=== PATIENT | male | born 1965 | race Caucasian/White ===

== ENCOUNTER → 2017-11-30 | Outpatient (CLI) | payer BC | END | disposition home or self-care (01) | LOC: C.RDSM 12:42 | PROVIDERS: ATTEND Orthopaedic Surgery | DX: M25.561 Pain in right knee (principal) ==

== ENCOUNTER → 2017-12-11 | Outpatient (CLI) | payer BC ==
[2017-12-11 11:44] LABS: HEMATOCRIT 48.1 % (42-52); HEMOGLOBIN 16.3 g/dL (14.0-18.0); MEAN CELL VOLUME 86.7 fL (80-100); MEAN CORPUSCULAR HEMOGLOBIN 29.4 pg (25-34); MEAN CORPUSCULAR HGB CONC 33.9 g/dl (32-36); MEAN PLATELET VOLUME 10.8 fL (7.4-10.4); PLATELET COUNT 239 K/uL (130-400); RED CELL DISTRIBUTION WIDTH CV 13.8 % (11.5-14.5); RED CELL DISTRIBUTION WIDTH SD 43.5 fL (36.4-46.3); WHITE BLOOD COUNT 6.97 K/uL (4.8-10.8)
[2017-12-11 12:08] LABS: BLOOD UREA NITROGEN 13 mg/dl (7-18); CREATININE 1.15 mg/dl (0.60-1.40); GLUCOSE 94 mg/dl (70-99)
[2017-12-11 12:09] LABS: CALCIUM 9.1 mg/dl (8.5-10.1); CARBON DIOXIDE 29 mmol/L (21-32); SODIUM 139 mmol/L (136-145)
== END | disposition home or self-care (01) ==
LOC: C.LAB 09:27
PROVIDERS: ATTEND Physician Assistant
DX: Z01.818 Encounter for other preprocedural examination (principal); S83.231D Complex tear of medial meniscus, current injury, right knee, subsequent encounter; X58.XXXD Exposure to other specified factors, subsequent encounter

== ENCOUNTER → 2017-12-17 | Day surgery (SDC) | payer BC ==
[2017-12-05 08:32] VITALS: Ht 175.3 cm; Wt 83.2 kg
[~2017-12-17] VITALS: Ht 175.3 cm; Wt 83.2 kg
[~2017-12-17] MED LIST: ATROPINE SULFATE 0.1 MG/ML 5ML SYR IV PRN; CEFAZOLIN 2000MG IV PUSH 15 ML IV SCH; DEXAMETHASONE SOD INJ 4 MG/ML VIAL ONE; EpHEDrine SULFATE INJ 50 MG/ML AMP IV PRN; EpINEphrine INJ 1MG/ML AMP 1 MG/ML AMP ONE; FENTANYL CITRATE INJ 50 MCG/1 ML 2 ML VIAL IV PRN; FENTANYL CITRATE INJ 50 MCG/1 ML 2 ML VIAL ONE; FLUMAZENIL 0.1 MG/1 ML 10 ML VIAL IV PRN; LABETALOL HCL IV 5 MG/ML 20ML IV PRN; LACTATED RINGER'S 1000ML 1,000 ML IV SCH; LIDO 2%/EPINEPHRINE 1:100000 20 ML VIAL ONE; LIDOCAINE HCL 2% 2 ML VIAL (20MG/ML) ONE; MEPERIDINE HCL 25 MG/ML CARP IV PRN; METOCLOPRAMIDE HCL INJ 5 MG/ML 2 ML VIAL IV PRN; MIDAZOLAM HCL 1 MG/ML 2ML VIAL ONE; NALOXONE HCL 0.4 MG/1 ML VIAL/CARP IV PRN; ONDANSETRON INJ 2 MG/ML 2 ML VIAL IV PRN; ONDANSETRON INJ 2 MG/ML 2 ML VIAL ONE; PHENYLEPHRINE 100MCG/ML 5ML SYR IV PRN; PROPOFOL IV EMULSION 10 MG/ML 20 ML VIAL ONE; ROPIVACAINE 0.5% 5 MG/ML 30 ML VIAL ONE; SODIUM CHLORIDE 0.9% 1000ML 1,000 ML IV SCH; TRAMADOL HCL 50 MG TAB ONE; TRAMADOL HCL 50 MG TAB PO PRN
--- NOTE | 2017-12-17 06:50 | History & Physical Bridge - [place] ---
H&P Re-Evaluation Bridge Note: I have examined the patient, reviewed the History & Physical and in the interval since the performance of the History & Physical I have noted the following changes of clinical significance: No changes noted
--- NOTE | 2017-12-17 07:45 | [facility] Post Operative Brief Note ---
Immediate Operative Summary Operative Date Dec 17, 2017. Pre-Operative Diagnosis Right Knee Medial Meniscus Tear Post-Operative Diagnosis Same Procedure(s) Performed Right Knee Arthroscopy, Partial Medial Meniscectomy, Cyst Excision, Chondroplasty of Lateral Femoral Condyle Surgeon Dr. Perez Assembler [employer] Tester Electronics Surgeon(s) Juany Flores PA-C Estimated Blood Loss Minimal Findings Consistent with Post-Op Diagnosis Fluids (cc crystalloids) 600 cc Specimens A. Right Mensical Cyst Drains None Anesthesia Type General Complication(s) none Disposition Accompanied Pt To Recover: no Disposition: Recovery Room / PACU
--- NOTE | 2017-12-17 07:58 | [facility] Operative Report ---
Operative Report Operative Date Dec 17, 2017. Pre-Operative Diagnosis Right Knee Medial Meniscus Tear Post-Operative Diagnosis Same Procedure(s) Performed Right Knee Arthroscopy, Partial Medial Meniscectomy, Cyst Excision, Chondroplasty of Lateral Femoral Condyle Surgeon Dr. Perez Template Layout Worker Surgeon(s) Juany Flores PA-C Estimated Blood Loss Minimal Fluids 600 cc Specimens A. Right Mensical Cyst Drains None Anesthesia Type General Complication(s) none Disposition no Recovery Room / PACU Description of Procedure I was present during the entire case and assisted with wound closure and dressing placement. Please see Dr. Perez note for specifics of procedure. I attest to the content of the Intraoperative Record and any orders documented therein. Any exceptions are noted below.
--- NOTE | 2017-12-17 08:02 | Discharge Instructions ---
Discharge Instructions Date of Service Dec 17, 2017. Admission Reason for Admission: Right Knee Medial Meniscus Tear Discharge Discharge Diagnosis / Problem: Right knee medial meniscus tear; Parameniscal Cyst; LFC chondromalacia Discharge Goals Goal(s): Decrease discomfort, Improve function, Increase independence Activity Recommendations Activity Limitations: as noted below Lifting Limitations: none Exercise/Sports Limitations: until after follow-up appointment May Resume Sexual Activity: when tolerated Shower/Bathe: tomorrow, keep incision dry Driving or Machine Use: No driving until cleared by academic support specialist. Weightbearing Status: Right weightbearing (as tolerated with aide of crutches for next few days) . Instructions / Follow-Up Instructions / Follow-Up Post-operative Instructions Dear Patient and Family/Friends, Before you are discharged from the hospital, it is important to know what to expect when you get home after surgery. To that end, we have created this sheet of discharge instructions which covers many commonly asked questions. Make sure you go through this sheet in its entirety with your nurse before you are discharged. Please note that we will go over the specifics of your surgery and recovery when you return for your first post-operative visit. Sincerely, Dr. Perez Pain Expect to be in a fair amount of pain after surgery. Remember, our goal is not to eliminate your pain, but to make it tolerable. It is a good idea to stay ahead of your pain by taking the medications you were prescribed once you get home. Typically, the pain starts improving 3-7 days after surgery. You should start weaning off the narcotic pain medication (oxycodone, hydrocodone, hydromorphone, morphine) as soon as your pain improves. Please call our office if your pain is not adequately controlled. Ice Ice your operative site at least 5 times a day for 15-30 minutes at a time. Make sure you have a thin cloth between the ice or cooling unit and your skin to prevent alonso bite. This is especially important if you received a nerve block. Continue icing your operative site for the first 5-7 days after surgery , then as needed. Diet/Nausea/Vomiting Start by drinking clear liquids and eating crackers. If you can tolerate this, then you may resume your normal diet. If you feel nauseated or vomit, take Zofran/ondansetron (if prescribed). Please call our office if you have intractable nausea or vomiting, or, if after hours, you may go to the Emergency Room for help. Constipation Constipation is a common side effect of narcotic pain medication. If you have not had a bowel movement within 2 days after surgery, we recommend purchasing an over the counter laxative such as Milk of Magnesia, Dulcolax, or Miralax from a local pharmacy, and taking it as instructed. Call our clinic if any questions. Slings and Braces If you were placed in a sling or brace, it must be worn at all times, including sleep. You may remove your sling or brace for physical therapy, home exercises , and showering. The length of time you will be in your brace and range of motion restrictions depends on what surgery you had; these details will be reviewed at your first post-operative appointment. Weight bearing and Range of Motion. Do not bear any weight through your operative extremity immediately after surgery. If you had upper extremity surgery, do not lift anything with that arm. If you are in a knee brace, keep it locked in place until your follow-up. We will discuss your weight bearing, range of motion, and lifting restrictions in detail at your first post-operative appointment. Continuous Passive Motion (CPM) Machine If you were prescribed a CPM machine, it will start after your first post- operative appointment, at which time we will give you instructions on the range of motion settings and duration of treatment Physical therapy You will be given a prescription for physical therapy or occupational therapy at your first post-operative appointment. Typically, patients start therapy within 1 week of surgery Wound care and showering We will inspect your wound at your first post-operative visit, and may do a dressing change at that time. Most patients will be in a water-proof dressing that is removed 14 days after surgery. It is normal to see some dried blood on the dressing. Do not remove your dressing, paper strips or sutures yourself unless you are given permission. Showering is allowed the day after surgery. Do not scrub or remove any dressings. The wound should not be submerged underwater (i.e. in a bathtub or pool) until 4 weeks after surgery NELSON stockings If you were given white stockings, these are to be worn at all times except to shower (on both legs) for the first 2 weeks after surgery. Driving You may not drive while taking narcotic pain medication or while in a cast, splint, sling or brace. You, the patient, need to make the final determination about when you are safe to drive, however, the earliest you may consider driving after surgery is below: Hand/Wrist/Elbow Surgery: 3 days Shoulder Surgery: 2 weeks Hip,/Knee/Ankle Surgery: 4 weeks Fracture repair: 6 weeks Return to Work Your return to work depends on what surgery was done and what type of work you do. Please bring any paperwork your employer needs completed to your first post -operative visit. Also, bring a description of your job duties, as this helps us to understand what risks you may face at work. Travel Avoid long distance travel (greater than 1 hour) in airplanes and cars for the first 6 weeks after surgery. If you must travel, you need to have a Doppler ultrasound done before you travel to rule out a blood clot in your legs. Follow-up You should have a follow-up appointment already scheduled 1-2 days after surgery. If not, please contact our office to make this appointment before you leave the hospital. When to call the office It is normal to have swelling and bruising in the limb that was operated on. This will improve with time. It is also normal to have fevers for the first 2 days after surgery. Reasons you should call your doctor include: Uncontrolled pain; Nausea, vomiting, or constipation that does not improve with medication; Fevers over 101.5, chills, sweats; Drainage or bleeding from the wound; Foul odor; Spreading areas of redness; Any other concerns Current Hospital Diet Patient's current hospital diet: Discharge Diet Recommended Diet: Regular Diet Procedures Procedures Performed: Right Knee Arthroscopy, Partial Medial Meniscectomy, Cyst Excision, Chondroplasty of Lateral Femoral Condyle Pending Studies Studies pending at discharge: yes List of pending studies: Pathology report for meniscal cyst excised Medical Emergencies . Who to Call and When: Medical Emergencies: If at any time you feel your situation is an emergency, please call 911 immediately. . Non-Emergent Contact Non-Emergency issues call your: Primary Care Provider Call Non-Emergent contact if: you have a fever, temperature is above 101.5, your pain is not controlled, your pain is worsening, wound has increased drainage, you have any medication questions . "Provider Documentation" section prepared by Vinay Flores. . [place] Drug Monitoring Program Search Results: patient reviewed within database, no issues identified, see additional documentation
--- NOTE | 2017-12-17 08:09 | Anesthesia Progress Nt - [facility] ---
Anesthesia Post Op Note Date & Time Dec 17, 2017 at 08:08 Vital Signs Pain Intensity: 0 Vital Signs Past 12 Hours Date Time Temp Pulse Resp B/P (MAP) Pulse Ox O2 Delivery O2 Flow Rate FiO2 12/17/17 08:01 68 10 12/17/17 08:01 67 10 117/78 100 12/17/17 07:57 129/80 12/17/17 07:56 36.8 74 12 129/80 99 Mask 8 12/17/17 06:26 36.4 57 14 133/92 (106) 98 Room Air Notes Mental Status: alert / awake / arousable, participated in evaluation Pt Amnestic to Procedure: Yes Nausea / Vomiting: adequately controlled Pain: adequately controlled Airway Patency, RR, SpO2: stable & adequate BP & HR: stable & adequate Hydration State: stable & adequate Anesthetic Complications: no major complications apparent
[2017-12-17 08:19] VITALS: TEMP 36.2
[2017-12-17 09:00] VITALS: BP 125/81; PULSE 66; O2SAT 97
--- NOTE | 2017-12-17 09:10 | OPERATIVE REPORT ---
DATE OF OPERATION: 12/17/2017 PREOPERATIVE DIAGNOSIS: Right knee medial meniscus tear. POSTOPERATIVE DIAGNOSES: Right knee medial meniscus tear and chondromalacia of the lateral femoral condyle and lateral meniscus cyst. OPERATIONS PERFORMED: 1. Right knee arthroscopy, partial medial meniscectomy. 2. Right knee arthroscopic cyst excision. 3. Right knee chondroplasty of the lateral femoral condyle. SURGEON: Jaswinder Perez MD COUNTRY MANAGER: Juany Flores. ESTIMATED BLOOD LOSS: Minimal. IV FLUIDS: 600 mL crystalloid. SPECIMENS: Right knee lateral meniscus cyst. COMPLICATIONS: None. IMPLANTS: None. INDICATIONS: Mr. Lr is a 52-year-old male who has had pain in his right knee that has been refractory to nonsurgical management. MRI demonstrates a tear of the medial meniscus which correlates with his physical exam findings. I had a long discussion with him about the risks and benefits of surgery, alternatives to surgery and expected outcomes. After reviewing all these, he elected to proceed with surgery. All questions were answered. Informed consent was signed. DESCRIPTION OF PROCEDURE: The patient was identified in the preoperative holding area where the surgical site was marked. He was brought back to the main operating room, where he was placed on the operating room table and general anesthesia was administered. All bony prominences were padded. Perioperative antibiotics were administered. He was prepped and draped in the normal sterile fashion. Prior to incision, a multidisciplinary timeout was called. All in the room were in agreement. We began by injecting his portals with 6 mL of 2% lidocaine with epinephrine. A lateral viewing portal was then created followed by a medial working portal under direct visualization. Diagnostic arthroscopy was then performed revealing the below findings: 1. The undersurface of the patella was normal. 2. The trochlea showed a small area of grade 1 chondromalacia. 3. The medial and lateral gutters were free of any loose bodies. 4. The medial compartment showed grade 1 chondromalacia of the medial femoral condyle and medial tibial plateau. 5. The medial meniscus showed a degenerative tear from the posterior horn extending into the body involving approximately 30% of his meniscus. 6. The notch showed the ACL and the PCL to be intact. 7. The lateral compartment showed a cyst adjacent to the posterior root of the lateral meniscus. This had a benign appearance of a ganglion cyst. The lateral meniscus itself, however, was intact. The lateral femoral condyle showed an 8 mm x 8 mm chondral defect grade 3 in the posterior aspect of the condyle. The remainder of the condyle was normal. The tibial plateau showed a grade 3 chondromalacia. I have completed a diagnostic arthroscopy, then introduced the meniscal biters which used to trim back the medial meniscus to a stable base. The shaver was used to remove any fragments of meniscus as well as to smooth the edges. We then entered the lateral compartment and used a meniscal biter to remove the cyst which measured only approximately a 2 mm x 6 mm. This was sent off for permanent section. A shaver was used to debride the base of the cyst adjacent to the posterior root. We then flexed the knee up to the point where we could place the shaver on the chondral defect of the lateral femoral condyle and used this to perform a gentle chondroplasty of this defect. At this point, the knee was thoroughly irrigated to ensure there were no further meniscal fragments in the knee. The arthroscopic instruments were removed. His portals were closed with 3-0 Monocryl sutures. A 30 mL of Naropin was injected into the portals with 10 mL of 30 into the knee. Sterile dressings were applied. He was extubated and transferred to the recovery room in stable condition. POSTOPERATIVE COURSE: The patient will be discharged home from the recovery room. A follow up in our physical therapy clinic tomorrow. He will be on aspirin for DVT prophylaxis. I attest to the content of the Intraoperative Record and any orders documented therein. Any exception s are noted below.
== END | disposition home or self-care (01) ==
LOC: X.SURG 06:13
PROVIDERS: ATTEND Orthopaedic Surgery
DX: S83.241A Other tear of medial meniscus, current injury, right knee, initial encounter (principal); W18.40XA Slipping, tripping and stumbling without falling, unspecified, initial encounter; M94.261 Chondromalacia, right knee; Z87.891 Personal history of nicotine dependence; Z88.5 Allergy status to narcotic agent